=== PATIENT | female | born 1970 | race Caucasian/White ===

== ENCOUNTER 2016-05-13 08:31 | Day surgery (SDC) | payer BC ==
[~2016-05-13 08:31] MED LIST: Lactated Ringers 1,000 ML IV SCH; Sodium Chloride 0.9% 10 ML Syringe FLUSH PRN
[2016-05-13] MEDS ORDERED: fentaNYL 100 MCG/2 ML SDV ONE ×2 (08:45→09:10)
[2016-05-13] MEDS ORDERED: Midazolam 1 MG/ML 2 ML SDV ONE ×2 (08:45→09:10)
[2016-05-13] MEDS ORDERED: Propofol 200 MG/20 ML SDV ONE ×2 (08:46→09:10)
--- NOTE | 2016-05-13 09:18 | PCM.PN ---
- General Info Date of Service: 05/13/16 - Review of Systems Systems Review Comment:: 45 y/o female referred by Devan Barraza for Colonoscopy because of change in bowel habits. She is medically stable to proceed with no recent changes to her health status. I have discussed the proposed colonoscopy to the patient. Risks such as but not limited to bleeding and GI injury reviewed and she agrees to proceed. - Patient Data Vitals - most recent: Last Vital Signs Temp 98.1 F 05/13/16 08:06 Pulse 98 05/13/16 08:06 Resp 18 05/13/16 08:06 BP 112/90 05/13/16 08:06 Pulse Ox 99 05/13/16 08:06 Weight - most recent: 61.235 kg Med Orders - Current: Current Medications Lactated Ringer's (Ringers, Lactated) 1,000 mls @ 125 mls/hr IV ASDIRECTED HARVEY Last Admin: 05/13/16 08:37 Dose: 125 mls/hr Sodium Chloride (Saline Flush) 10 ml FLUSH ASDIRECTED PRN PRN Reason: Keep Vein Open Discontinued Medications Fentanyl (Sublimaze) Confirm Administered Dose 100 mcg .ROUTE .STK-MED ONE Stop: 05/13/16 08:46 Midazolam HCl (Versed 1 Mg/Ml) Confirm Administered Dose 2 mg .ROUTE .STK-MED ONE Stop: 05/13/16 08:46 Propofol (Diprivan 20 Ml) Confirm Administered Dose 400 mg .ROUTE .STK-MED ONE Stop: 05/13/16 08:47 - Problem List Review Problem List Initiated/Reviewed/Updated: Yes - Assessment Assessment:: change in bowel habits - Plan Plan:: colonoscopy
--- NOTE | 2016-05-13 09:49 | PCM.OPNOTE ---
- General Post-Op/Procedure Note Date of Surgery/Procedure: 05/13/16 Operative Procedure(s): Colonoscopy Findings: Small External Hemorrhoids Colon appears normal Pre Op Diagnosis: Change in bowel habits Post-Op Diagnosis: Hemorrhoids Anesthesia Technique: MAC Primary Surgeon: Karri Griggs Pathology: none Output, Urine Amount: 0 EBL in mLs: 0 Complications: None Condition: Good Free Text/Narrative:: Intake & Output 05/12/16 05/13/16 05/13/16 22:59 06:59 14:59 Intake Total 900 Balance 900
[2016-05-13 10:18] VITALS: BP 104/79
--- NOTE | 2016-05-13 13:35 | OR ---
Date of Procedure: 05/13/2016 PREOPERATIVE DIAGNOSIS: Change in bowel habits. POSTOPERATIVE DIAGNOSIS: External hemorrhoids. OPERATION PERFORMED: Colonoscopy. INDICATIONS FOR SURGERY: This 45-year-old female has noticed recent significant change in her bowel habits with intermittent episodes of diarrhea. She is referred for colonoscopy. FINDINGS: The patient's colon appears normal. The mucosa does not appear to be acutely inflamed or otherwise abnormal. No polyps were seen during today's exam. The patient does have small external hemorrhoids noted on retroflexed viewing of the rectum. DESCRIPTION OF PROCEDURE: The patient was taken to the operating room. She was given intravenous sedation and with her in the left lateral decubitus position, digital rectal exam was performed showing no rectal masses. The Olympus colonoscope was inserted into the rectum, retroflexed. Examination of the rectal canal was performed. The scope was then carefully advanced under direct visualization through the entire length of the colon until the cecum was reached. Cecal acquisition was confirmed by noting the normal internal cecal anatomy including the appendiceal orifice and ileocecal valve. The light was also noted to transilluminate the abdominal wall in the right lower quadrant. After examining the cecum, the scope was slowly withdrawn, sequentially re- examining the colonic segments. Once the entire colon and rectum had been fully examined, the scope was removed and the patient was taken from the operating room in satisfactory condition. ESTIMATED BLOOD LOSS: Zero. COMPLICATIONS: None. PROGNOSIS: Good. SHARRON Griggs MD /[id number]
== END 2016-05-13 10:45 | disposition home or self-care (01) ==
LOC: LL.SDS 08:31
PROVIDERS: ATTEND Surgery
DX: K64.4 Residual hemorrhoidal skin tags (principal); Z98.51 Tubal ligation status; Z98.890 Other specified postprocedural states; Z79.899 Other long term (current) drug therapy; Z88.8 Allergy status to other drugs, medicaments and biological substances
CPT/HCPCS: 45378; J2250; J2704; J3010; J7120

== ENCOUNTER 2017-06-05 19:04 | Emergency (ER) | payer BC ==
[2017-06-05 19:14] VITALS: BP 134/87
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
[2017-06-05] MEDS: Bacitracin/Neomycin/Polymyxin B Oint 0.9 GM U/D Packet TOP ONE (19:51)
== END 2017-06-05 20:15 | disposition home or self-care (01) ==
LOC: LL.ED 19:04
DX: S61.210A Laceration without foreign body of right index finger without damage to nail, initial encounter (principal); Z88.1 Allergy status to other antibiotic agents; Z88.8 Allergy status to other drugs, medicaments and biological substances; F17.210 Nicotine dependence, cigarettes, uncomplicated; W23.0XXA Caught, crushed, jammed, or pinched between moving objects, initial encounter
CPT/HCPCS: 12001; 73130-RT; 99283